=== PATIENT | male | born 1970 | race Caucasian/White ===

== ENCOUNTER 2017-01-02 09:58 | Emergency (ER) | payer BC ==
[~2017-01-02] VITALS: Ht 182.9 cm; Wt 126.1 kg
[2017-01-02 09:58] VITALS: BP 148/106
--- NOTE | 2017-01-02 10:21 | PHYS DOC ---
Adult General Chief Complaint Chief Complaint: left small finger injury HPI HPI Patient is a 46 year old male who presents with complaint of injury to the left small fingertip. This took place shortly prior to arrival. 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 Patient suffered laceration to the fingertip. Bleeding controlled prior to arrival. Patient came to the emergency department to have his wound evaluated. Patient denies any other injuries. Patient states he is up-to-date on his tetanus immunization. Review of Systems Review of Systems Constitutional: Denies fever or chills [] Eyes: Denies change in visual acuity, redness, or eye pain [] HENT: Denies nasal congestion or sore throat []patrick [] Musculoskeletal: Left small fingertip injury[] Integument: Left fingertip laceration[] Neurologic: Denies headache, focal weakness or sensory changes [] Physical Exam Physical Exam Constitutional: Well developed, well nourished, no acute distress, non-toxic appearance. [] HENT: Normocephalic, atraumatic, bilateral external ears normal, oropharynx moist, no oral exudates, nose normal. [] Skin: Warm, dry, no erythema, no rash. [] Extremities: Superficial avulsive wound to left fifth digit fingertip, full range of motion present in all 5 digits of left hand. [] Neurologic: Alert and oriented X 3, normal motor function, normal sensory function, no focal deficits noted. [] EKG EKG Not performed[] Radiology/Procedures Radiology/Procedures Not performed[] Course & Med Decision Making Course & Med Decision Making Pertinent Labs and Imaging studies reviewed. (See chart for details) Patient's wound superficial to the left small fingertip. Wound was cleansed and dressed with antibiotic ointment and a Band-Aid. Advised to change dressing once a day at home. Recommended routine follow-up with primary doctor as needed. Recommended return to emergency department for any worsening or severe symptoms. Patient voiced understanding and in agreement with treatment plan. Dragon Disclaimer Dragon Disclaimer This chart was dictated in whole or in part using Voice Recognition software in a busy, high-work load, and often noisy Emergency Department environment. It may contain unintended and wholly unrecognized errors or omissions. Departure Departure: Impression: Primary Impression: Avulsion of skin of finger Disposition: HOME, SELF-CARE Condition: IMPROVED Referrals: NON,STAFF (PCP) Patient Instructions: Wound Care, [id number] Additional Instructions: Be sure to change her dressing at least once a day and reapply antibiotic ointment with each dressing change. Follow-up with your primary doctor as needed. Return to the emergency department for any worsening symptoms. Problem Qualifiers Primary Impression: Avulsion of skin of finger Encounter type: initial encounter Qualified Codes: S61.209A - Unspecified open wound of unspecified finger without damage to nail, initial encounter KAIT JOSHUA MD Jan 02, 2017 10:21
== END 2017-01-02 10:25 | disposition home or self-care (01) ==
LOC: ER 09:58
DX: S61.307A Unspecified open wound of left little finger with damage to nail, initial encounter (principal); W31.89XA Contact with other specified machinery, initial encounter; Y93.89 Activity, other specified; Y92.89 Other specified places as the place of occurrence of the external cause; Y99.8 Other external cause status
CPT/HCPCS: 99283